=== PATIENT | female | born 1945 | race Caucasian/White ===

== ENCOUNTER → 2017-10-03 | Outpatient (CLI) | payer MEDICARE, MEDICAID ==
[~2017-10-03] MED LIST: ANAPROX DS550 MG PO; ASPIRIN 500 MG PO; ASPIRIN CHILDRE80 MG PO; ASPIRIN81 M1 PO; BACTRIM DS 8001 TA1 PO; CAMBIA50 MG PO; CIPROFLOXACIN250 MG; CITALOPRAM20 MG; CITALOPRAM20 MG PO; COLACE100 MG PO; DIFLUCAN200 MG PO; Diabeta,Micron2.5 MG; EC NAPROSYN,NA500 MG PO; FLEXERIL5 MG; FUROSEMIDE40 MG PO; GLIPIZIDE5 MG PO; HYDROCODONE W/1 TA1; KETOROLAC10 MG; KLOR-CON M2020 MEQ; LASIX40 MG; LISINOPRIL2.5 MG PO; LISINOPRIL20 MG PO; LOPRESSOR25 MG PO; MACROBID100 M1; MEDROL DOSEPAK4 MG PO; METFORMIN HCL1000 MG PO; METOPROLOL25 MG; MICONAZOLE; MIRALAX POWDER17 GM PO; MIRALAX17 GM PO; Meclizine25 MG PO; NEURONTIN300 MG PO; NEURONTIN400 MG PO; Nizoral 2%15 GM PO; OMEPRAZOLE DR20 MG; OXYCONTIN20 MG PO; PERCOCET 325 MG1 TA2 PO; PRAVASTATIN SOD40 MG PO; PRILOSEC20 MG PO; REMERON30 MG PO; ROBAXIN500 M1 PO; TRAMADOL HCL50 MG; TRAMADOL HCL50 MG PO; VICODIN 5/500 505 MG PO; VITAMIN D1000 IU; VITAMIN D22000 UNIT PO; Vicodin 5/500 505 MG PO; XANAX0.25 MG PO; XANAX0.5 MG PO; ZESTRIL10 MG PO; ZOLPIDEM10 MG; ZOLPIDEM5 MG PO
[2017-10-03 13:40] LABS: BASO % 0.5 % (0.0-1.0); EOS # 0.2 10*3/uL (0.0-0.4); EOS % 2.6 % (1.0-4.0); HEMATOCRIT 44.3 % (37.0-47.0); HEMOGLOBIN 13.3 g/dl (12.0-16.0); LYMPH # 1.5 10*3/uL (1.3-4.4); LYMPH % 17.3 % (27.0-41.0); MEAN CELL VOLUME 88.2 fl (81.0-99.0); MEAN CORPUSCULAR HGB 26.5 pg (27.0-31.0); MEAN PLATELET VOLUME 10.3 fl (9.6-12.3); MONO # 0.6 10*3/uL (0.1-1.0); NEUT # 6.3 10*3/uL (2.3-7.9); NEUT % 71.8 % (47.0-73.0); PLATELET COUNT AUTOMATED 189 10*3/uL (130-400); RED BLOOD COUNT 5.02 10*6/uL (4.10-5.10); RED CELL DISTRI WIDTH 15.3 % (0-14.5); WHITE BLOOD COUNT 8.8 10*3/uL (4.8-10.8)
[2017-10-03 14:09] LABS: ALBUMIN 3.8 gm/dl (3.1-4.5); CHLORIDE 105 mmol/L (98-107); POTASSIUM 4.6 mmol/L (3.5-5.1); SODIUM 141 mmol/L (136-145)
[2017-10-03 14:23] LABS: ALKALINE PHOSPHATASE 69 U/L (45-117); BUN 19 mg/dl (7-24); CHOLESTEROL 164 mg/dL (<200); CREATININE 0.88 mg/dL (0.55-1.02); HDL CHOLESTEROL 50 mg/dl (40-60); LDL CHOLESTEROL 82 mg/dL (9-159); SGOT/AST 9 IU/L (3-35); SGPT/ALT 12 U/L (12-78); THYROID STIM HORMONE (HS) 0.993 uIU/ml (0.358-4.75); TRIGLYCERIDES 159 mg/dl (<150); VLDL CHOLESTEROL 32 mg/dL (6-40)
== END | disposition home or self-care (01) ==
LOC: ORTHO 03:32 → LAB 03:32 → ORTHO 22:01
PROVIDERS: Internal Medicine
DX: M17.12 Unilateral primary osteoarthritis, left knee (principal); M54.6 Pain in thoracic spine; E11.42 Type 2 diabetes mellitus with diabetic polyneuropathy; E55.9 Vitamin D deficiency, unspecified; E78.2 Mixed hyperlipidemia

== ENCOUNTER → 2018-09-07 | Day surgery (SDC) | payer MEDICARE ==
[~2018-09-07] VITALS: Ht 157.4 cm; Wt 109.8 kg
[~2018-09-07] MED LIST changes: +LORAZEPAM0.5 MG PO; +SEPTDS PO
--- NOTE | ~2018-09-07 | PROC NOTE ---
[place], [place] PROCEDURE NOTE NAME: MERCEDES MATUTE UNIT #: [id number] ROOM: DOCTOR: AGNES WATTERS MD BIRTHDATE: [birth year] DOS: 09/07/2018 PREOPERATIVE DIAGNOSIS: Positive Cologuard. POSTOPERATIVE DIAGNOSIS: Mild diverticulosis, incomplete colonoscopy. PROCEDURE: Colonoscopy. ENDOSCOPIST: Agnes Watters MD COLLECTION SYSTEMS MODELER: RENA. ANESTHESIA: MAC. INDICATIONS: This is a 73-year-old lady with a history of a recent positive Cologuard test who is here for a screening colonoscopy. The procedure and its complications were explained to the patient in detail. Complications that were discussed included but were not limited to, bleeding, colon perforation, prolonged pain and missed lesions. She agreed to proceed. DESCRIPTION OF PROCEDURE: After identifying the patient, the patient was brought to the endoscopy suite and placed in the left lateral position. After a time-out procedure was called, IV sedation was administered by the anesthesia team. A digital rectal exam was performed and it was within normal limits. An adult colonoscope was now introduced into the anal canal and advancing sequentially into the rectum, sigmoid colon, descending colon, transverse colon and ascending colon right up to the point of the mid ascending colon. Beyond this point, the scope could not be advanced to better visualize the cecum. After multiple attempts, the procedure was aborted and the scope was pulled out. There was mild diverticulosis seen in the transverse colon, but no obvious lesions could be identified in the entirety of the colon. The scope was then removed and the patient was brought back to the recovery in stable fashion. Based on these findings, the patient will be recommended to have a barium enema as a followup to this incomplete colonoscopy in order to make sure that there are no lesions in the proximal part of the ascending colon that was not visualized on the colonoscopy. Agnes Watters MD CM:PROCNOTE:PROCEDURE NOTE [id number] AGNES WATTERS MD
[2018-09-07 06:30] VITALS: BP 197/76
[2018-09-07 08:25] VITALS: BP 207/82
[2018-09-07 08:40] VITALS: BP 200/76
[2018-09-07 08:55] VITALS: BP 161/98
== END | disposition home or self-care (01) ==
LOC: SDC 09-04 08:00
DX: K57.30 Diverticulosis of large intestine without perforation or abscess without bleeding (principal); E11.9 Type 2 diabetes mellitus without complications; F41.9 Anxiety disorder, unspecified; M19.90 Unspecified osteoarthritis, unspecified site; J44.9 Chronic obstructive pulmonary disease, unspecified; F32.9 Major depressive disorder, single episode, unspecified; E66.01 Morbid (severe) obesity due to excess calories; E78.5 Hyperlipidemia, unspecified; I25.10 Atherosclerotic heart disease of native coronary artery without angina pectoris; I11.0 Hypertensive heart disease with heart failure; I50.9 Heart failure, unspecified; Z79.84 Long term (current) use of oral hypoglycemic drugs; Z79.899 Other long term (current) drug therapy; Z90.710 Acquired absence of both cervix and uterus; Z95.818 Presence of other cardiac implants and grafts; Z98.890 Other specified postprocedural states; Z98.51 Tubal ligation status; Z87.891 Personal history of nicotine dependence; Z68.44 Body mass index [BMI] 60.0-69.9, adult; Z86.14 Personal history of Methicillin resistant Staphylococcus aureus infection; Z83.3 Family history of diabetes mellitus; Z82.49 Family history of ischemic heart disease and other diseases of the circulatory system

== ENCOUNTER 2018-10-25 21:03 | Emergency (ER) | payer MEDICARE ==
[~2018-10-25] VITALS: Ht 157.4 cm; Wt 108.9 kg
--- NOTE | ~2018-10-25 | EKG ---
[place], [place] ELECTROCARDIOGRAM REPORT NAME: MERCEDES MATUTE UNIT #: [id number] ROOM: DOCTOR: EPIPHANY DRAFT REPORT BIRTHDATE: [birth year] [facility] Test Date: 2018-10-25 Test Time: 21:40:09 Pat Name: MERCEDES MATUTE Department: ER Room: Gender: F Harness Rigger: Shoaib Garza : 1945 Requested By: FRANCES RUELAS Order Number: [id number] Reading MD: Nam Ramsey MD Measurements Intervals [place] Rate: 55 P: -12 VA: 240 QRS: -33 QRSD: 88 T: 85 QT: 463 QTc: 443 Interpretive Statements Sinus rhythm Prolonged VA interval Probable left atrial enlargement LVH with secondary repolarization abnormality Electronically Signed On 10-26-2018 6:23:59 PDT by Nam Ramsey MD CM:EKGRPT:ELECTROCARDIOGRAM REPORT [id number] FRANCES ADAMS DRAFT REPORT FRANCES RUELAS DO
[~2018-10-25 21:03] MED LIST changes: -LORAZEPAM0.5 MG PO; -SEPTDS PO
[2018-10-25] MEDS ORDERED: LORAZEPAM0.5 MG PO (21:06)
[2018-10-25 21:07] VITALS: BP 175/56
[2018-10-25 21:40] LABS: BASO # 0.1 10*3/uL (0.0-0.1); BASO % 0.5 % (0.0-1.0); EOS # 0.3 10*3/uL (0.0-0.4); HEMATOCRIT 39.3 % (37.0-47.0); HEMOGLOBIN 11.7 g/dl (12.0-16.0); LYMPH # 2.2 10*3/uL (1.3-4.4); MEAN CELL VOLUME 84.9 fl (81.0-99.0); MEAN CORPUSCULAR HGB 25.3 pg (27.0-31.0); MEAN CORPUSCULAR HGB CONC 29.8 g/dl (33.0-37.0); MEAN PLATELET VOLUME 10.4 fl (9.6-12.3); MONO % 9.1 % (3.0-9.0); NEUT # 7.8 10*3/uL (2.3-7.9); PLATELET COUNT AUTOMATED 244 10*3/uL (130-400); RED BLOOD COUNT 4.63 10*6/uL (4.10-5.10); RED CELL DISTRI WIDTH 15.4 % (0-14.5); WHITE BLOOD COUNT 11.4 10*3/uL (4.8-10.8)
[2018-10-25 21:57] LABS: ALBUMIN 3.6 gm/dl (3.1-4.5); ALKALINE PHOSPHATASE 94 U/L (45-117); BUN 23 mg/dl (7-24); CHLORIDE 99 mmol/L (98-107); CREATININE 1.14 mg/dL (0.55-1.02); POTASSIUM 4.1 mmol/L (3.5-5.1); SGOT/AST 16 IU/L (3-35); SGPT/ALT 13 U/L (12-78); SODIUM 133 mmol/L (136-145); TOTAL PROTEIN 7.5 gm/dL (6.4-8.2)
[2018-10-25 21:58] LABS: TROPONIN I < 0.015 ng/ml (<0.045)
[2018-10-25 21:59] LABS: ACT PARTIAL THROMBO TIME 23.7 SECONDS (20.0-32.1); INTERNATIONAL NORM RATIO 0.9 (2.0-3.5)
[2018-10-25 22:27] LABS: BILIRUBIN NEGATIVE (NEGATIVE); BLOOD NEGATIVE (NEGATIVE); CLARITY CLEAR (CLEAR); COLOR YELLOW (YELLOW); GLUCOSE NEGATIVE (NEGATIVE); KETONE NEGATIVE (NEGATIVE); LEUKO ESTERASE 2+ (NEGATIVE); NITRITE NEGATIVE (NEGATIVE); PH 6.5 (5.0-9.0); SPECIFIC GRAVITY <= 1.005 (1.005-1.030); UROBILINOGEN 0.2 E.U./dl (0.2-1.0)
[2018-10-25 22:43] LABS: EPITHELIAL CELLS 15-20
[2018-10-25 22:44] LABS: WBC 16-20 wbc/hpf (0-5)
[2018-10-25] MEDS ORDERED: SEPTDS PO (22:56)
== END 2018-10-25 23:31 | disposition home or self-care (01) ==
LOC: ED 21:03
PROVIDERS: Student in an Organized Health Care Education/Training Program
DX: N39.0 Urinary tract infection, site not specified (principal); R41.0 Disorientation, unspecified; I11.0 Hypertensive heart disease with heart failure; I50.33 Acute on chronic diastolic (congestive) heart failure; E78.5 Hyperlipidemia, unspecified; E66.01 Morbid (severe) obesity due to excess calories; E11.9 Type 2 diabetes mellitus without complications; Z68.42 Body mass index [BMI] 45.0-49.9, adult; Z79.899 Other long term (current) drug therapy; Z90.710 Acquired absence of both cervix and uterus; Z87.891 Personal history of nicotine dependence

== ENCOUNTER 2019-02-24 16:42 | Inpatient (IN) | payer MEDICARE ==
[~2019-02-24] VITALS: Ht 157.5 cm; Wt 100.7 kg
[~2019-02-24 16:42] MED LIST changes: +LORAZEPAM0.5 MG PO; +SEPTDS PO
[2019-02-24 17:02] VITALS: BP 186/98
--- NOTE | 2019-02-24 17:09 | NUR ---
PT STATES SHE HAS NO WOUNDS OR OPEN AREAS
[2019-02-24 18:00] LABS: BASO # 0.1 10*3/uL (0.0-0.1); BASO % 0.5 % (0.0-1.0); EOS # 0.2 10*3/uL (0.0-0.4); EOS % 1.8 % (1.0-4.0); HEMATOCRIT 39.6 % (37.0-47.0); HEMOGLOBIN 11.5 g/dl (12.0-16.0); LYMPH # 1.8 10*3/uL (1.3-4.4); LYMPH % 18.9 % (27.0-41.0); MEAN CORPUSCULAR HGB 24.1 pg (27.0-31.0); MEAN PLATELET VOLUME 10.5 fl (9.6-12.3); MONO # 0.8 10*3/uL (0.1-1.0); MONO % 8.6 % (3.0-9.0); NEUT # 6.7 10*3/uL (2.3-7.9); NEUT % 69.6 % (47.0-73.0); PLATELET COUNT AUTOMATED 197 10*3/uL (130-400); RED BLOOD COUNT 4.77 10*6/uL (4.10-5.10); RED CELL DISTRI WIDTH 16.8 % (0-14.5); WHITE BLOOD COUNT 9.6 10*3/uL (4.8-10.8)
[2019-02-24 18:14] LABS: ALBUMIN 3.4 gm/dl (3.1-4.5); ALKALINE PHOSPHATASE 79 U/L (45-117); BUN 23 mg/dl (7-24); CHLORIDE 109 mmol/L (98-107); CREATININE 0.88 mg/dL (0.55-1.02); POTASSIUM 4.4 mmol/L (3.5-5.1); SGOT/AST 16 IU/L (3-35); SGPT/ALT 15 U/L (12-78); SODIUM 141 mmol/L (136-145)
[2019-02-24 18:15] LABS: TROPONIN I < 0.015 ng/ml (<0.045)
[2019-02-24 19:50] VITALS: BP 182/88
--- NOTE | 2019-02-24 20:30 | NUR ---
1/2 DOSE HYDRAZALINE GIVEN TO THE PATIENT PER PERSONAL FITNESS TRAINER ORDER. WILL GIVE THE OTHER DOSE IF NEEDED.
--- NOTE | 2019-02-24 21:00 | NUR ---
OTHER HALF OF HYDRAZALINE GIVEN TO THE PATIENT.
[2019-02-24 21:40] VITALS: BP 202/74
--- NOTE | 2019-02-24 21:40 | NUR ---
A 73, admitted to , under the services of CHARAN Pineda DO with a diagnosis of HYPERTENSIVE URGENCY, SYNCOPE. Chief complaint is FALL. Patient arrived via ambulance from ER. Monitor applied. Initial assessment completed. Vital signs taken and recorded. CHARAN PINEDA DO notified of admission to the unit. Orders received. See assessment for past medical history, medications and allergies. Patient and/or family oriented to unit. [address] visitation policy reviewed. Clothing/patient valuable form completed. ARACELI KING
--- NOTE | 2019-02-24 22:34 | NUR ---
INFORMED MED REC UP TO DATE AND OF MANUAL BP 202/74. ORDERS TO BE PUT IN BY HIM.
--- NOTE | 2019-02-24 22:35 | NUR ---
PATIENT DECLINING FLU AND PNEMONIA SHOT. PATIENT STATES SHE WAS ALREADY VACCINATED THIS SEASON.
--- NOTE | 2019-02-24 23:00 | NUR ---
SPOKE TO REGARDING BP MEDICATION. NEW ORDERS RECEIVED.
--- NOTE | 2019-02-24 23:16 | NUR ---
ONE TIME APRESOLINE GIVEN ORDERED. WILL CHECK EFFECTIVENESS.
--- NOTE | 2019-02-24 23:30 | NUR ---
PTS BP NOW 160/72 AFTER HYDRALAZINE. WILL CONTINUE TO MONITOR.
[2019-02-25] VITALS: BP 156/63; BP 170/67
--- NOTE | 2019-02-25 00:32 | NUR ---
PT COMPLAINS OF LOWER BACK AND LEFT HIP PAIN RATED 10/10. MEDICATED WITH PRN NORCO. WILL CHECK EFFECTIVENESS. CALL LIGHT WITHIN REACH.
--- NOTE | 2019-02-25 01:11 | NUR ---
PATIENT NAUSEOUS AND THROWING UP. MEDICATED WITH PRN ZOFRAN AT THIS TIME ORDERED. WILL CHECK EFFECTIVENESS. CALL LIGHT WITHIN REACH.
--- NOTE | 2019-02-25 01:30 | NUR ---
PT STATES PAIN MED WAS EFFECTIVE RATING PAIN A 5/10 NOW. WILL CONTINUE TO MONITOR. CALL LIGHT IN REACH.
--- NOTE | 2019-02-25 01:35 | NUR ---
PATIENT STATES MEDICATION WAS EFFECITVE. SHE IS NO LONGER FEELING NAUSEOUS. WILL CONTINUE TO MONITOR.
--- NOTE | 2019-02-25 02:42 | NUR ---
24 HR chart check completed.
--- NOTE | 2019-02-25 05:24 | NUR ---
NOTIFIED OF CRITICAL TROPONIN OF 0.168. NEW ORDERS TO BE PUT IN BY HIM.
[2019-02-25 05:28] LABS: BUN 23 mg/dl (7-24); CHLORIDE 107 mmol/L (98-107); CHOLESTEROL 234 mg/dL (<200); HDL CHOLESTEROL 46 mg/dl (40-60); LDL CHOLESTEROL 158 mg/dL (9-159); PHOSPHOROUS 3.4 mg/dL (2.5-4.9); POTASSIUM 4.6 mmol/L (3.5-5.1); SODIUM 139 mmol/L (136-145); TRIGLYCERIDES 149 mg/dl (<150); VLDL CHOLESTEROL 30 mg/dL (6-40)
[2019-02-25 05:34] LABS: THYROID STIM HORMONE (HS) 0.576 uIU/ml (0.358-4.75)
--- NOTE | 2019-02-25 05:35 | NUR ---
ANSWERING SERVICE NOTIFIED OF NEW CONSULT.
[2019-02-25 06:05] LABS: BASO % 0.3 % (0.0-1.0); EOS # 0.1 10*3/uL (0.0-0.4); EOS % 0.8 % (1.0-4.0); HEMATOCRIT 40.6 % (37.0-47.0); HEMOGLOBIN 11.8 g/dl (12.0-16.0); LYMPH # 1.7 10*3/uL (1.3-4.4); LYMPH % 14.1 % (27.0-41.0); MEAN CORPUSCULAR HGB 23.8 pg (27.0-31.0); MEAN CORPUSCULAR HGB CONC 29.1 g/dl (33.0-37.0); MEAN PLATELET VOLUME 11.3 fl (9.6-12.3); MONO # 0.8 10*3/uL (0.1-1.0); MONO % 7.1 % (3.0-9.0); NEUT # 9.1 10*3/uL (2.3-7.9); NEUT % 76.9 % (47.0-73.0); PLATELET COUNT AUTOMATED 233 10*3/uL (130-400); RED BLOOD COUNT 4.95 10*6/uL (4.10-5.10); WHITE BLOOD COUNT 11.9 10*3/uL (4.8-10.8)
[2019-02-25 08:00] VITALS: BP 135/78
--- NOTE | 2019-02-25 08:15 | NUR ---
24 HR chart check completed.
[2019-02-25 08:25] LABS: VITAMIN D, 25-HYDROXY 30.8 ng/mL (30-100)
--- NOTE | 2019-02-25 09:52 | NUR ---
SPOKE W ZACHARYNEAR ABOUT CRITICAL TROPONIN 1.510
--- NOTE | 2019-02-25 09:58 | NUR ---
SITA BROUSSARD ABOUT TROPONIN 1.510 SAID HE WILL CALL DR CONRAD
[2019-02-25 12:00] VITALS: BP 178/60
--- NOTE | 2019-02-25 12:17 | NUR ---
DR MURRAY HERE TO SEE PT AND WAS NOTIFIED OF ALL AND LATEST TROPONINS.
--- NOTE | 2019-02-25 14:43 | NUR ---
SPOKE Joselo HERRERA ABOUT TROPONIN 2.76
--- NOTE | 2019-02-25 14:58 | NUR ---
SPOKEW BOBO ABOUT PT TROPONIN 2.76
[2019-02-25 16:00] VITALS: BP 148/72; BP 167/65
--- NOTE | 2019-02-25 16:29 | NUR ---
F/U BS 96 GAVE PT 2 OJS WHEN IT WAS 65
--- NOTE | 2019-02-25 17:26 | NUR ---
SPOKE Joselo BROUSSARD AND SHANTI ABOUT PT TROPONION 3.63 SAID SHE IS FOR HEART CATH TOMORROW
--- NOTE | 2019-02-25 18:39 | NUR ---
PT F/U BP 148/72 SINCE GIVING LABETALOL 167/70S
[2019-02-25 20:00] VITALS: BP 157/64
--- NOTE | 2019-02-25 20:25 | NUR ---
INFORMED THAT TROP 2.44. STATED OK, AND TO PLACE DISCHARGE ORDER FOR TRANSFER TO [facility].
--- NOTE | 2019-02-25 20:40 | NUR ---
PATIENT ASSESSMENT COMPLETE AT THIS TIME WITHOUT INCIDENT, PATIENT BATHING AT THIS TIME WITH ASSISTANCE. MONITOR INTACT. IV HEPARIN INFUSING WITHOUT INCIDENT AT THIS TIME. NEXT APTT IS DUE AT 2230. NC OXYGEN INTACT AT 3LPM. CALL LIGHT WITHIN REACH, WILL CONTINUE TO MONITOR.
--- NOTE | 2019-02-25 23:55 | NUR ---
NOTIFIED OF CRITICAL TROPONIN 1.710, DOWN FROM 2.440.
--- NOTE | 2019-02-26 00:35 | NUR ---
APTT 66.9, NO CHANGE TO HEPARIN DRIP AT THIS TIME. NEXT APTT ORDERED FOR 0530
--- NOTE | 2019-02-26 06:15 | NUR ---
[facility] CALLED, REPORT GIVEN TO TONI AT THIS TIME, ALL QUESTIONS ANSWERED TO HER SATISFACTION. OKAY TO LEAVE HEPARIN DRIP RUNNING AT 10UNITS/9.35ML/HR.
--- NOTE | 2019-02-26 07:30 | NUR ---
BEDSIDE REPORT GIVEN TO SARAN FROM [facility] FOR TRANSPORT AT THIS TIME. PATIENT OFF FLOOR WITH [facility] AT THIS TIME.
== END 2019-02-26 07:30 | disposition other institution (70) | DRG 281 ==
LOC: ED 16:42 → EDHOLD 19:57 → 4E 20:24
PROVIDERS: Internal Medicine; Nurse Practitioner Family; ADMIT Internal Medicine
DX: I21.4 Non-ST elevation (NSTEMI) myocardial infarction (principal); I16.1 Hypertensive emergency; I25.810 Atherosclerosis of coronary artery bypass graft(s) without angina pectoris; J96.11 Chronic respiratory failure with hypoxia; Z68.42 Body mass index [BMI] 45.0-49.9, adult; R55 Syncope and collapse; D50.9 Iron deficiency anemia, unspecified; R00.1 Bradycardia, unspecified; R42 Dizziness and giddiness; E78.5 Hyperlipidemia, unspecified; F32.9 Major depressive disorder, single episode, unspecified; E66.01 Morbid (severe) obesity due to excess calories; E11.65 Type 2 diabetes mellitus with hyperglycemia; M81.0 Age-related osteoporosis without current pathological fracture; E87.8 Other disorders of electrolyte and fluid balance, not elsewhere classified; D72.829 Elevated white blood cell count, unspecified; Z95.1 Presence of aortocoronary bypass graft; Z95.5 Presence of coronary angioplasty implant and graft; Z98.51 Tubal ligation status; Z90.710 Acquired absence of both cervix and uterus; Z99.81 Dependence on supplemental oxygen; Z82.0 Family history of epilepsy and other diseases of the nervous system; Z82.3 Family history of stroke; Z82.49 Family history of ischemic heart disease and other diseases of the circulatory system; Z83.3 Family history of diabetes mellitus; Z79.899 Other long term (current) drug therapy

== ENCOUNTER → 2019-12-11 | Outpatient (CLI) | payer MEDICARE | END | disposition home or self-care (01) | LOC: ORTHO 00:27 | PROVIDERS: ATTEND Psychiatry & Neurology Psychiatry | DX: M17.12 Unilateral primary osteoarthritis, left knee (principal); M25.762 Osteophyte, left knee ==

== ENCOUNTER → 2020-02-04 | Outpatient (CLI) | payer MEDICARE | END | disposition home or self-care (01) | LOC: RAD 16:44 | PROVIDERS: ATTEND Chiropractor | DX: S32.019A Unspecified fracture of first lumbar vertebra, initial encounter for closed fracture (principal); M81.0 Age-related osteoporosis without current pathological fracture; G95.20 Unspecified cord compression; J84.10 Pulmonary fibrosis, unspecified; X58.XXXA Exposure to other specified factors, initial encounter; Y93.89 Activity, other specified; Y92.89 Other specified places as the place of occurrence of the external cause; Y99.8 Other external cause status ==

== ENCOUNTER 2020-09-13 12:52 | Emergency (ER) | payer OTHER ==
[~2020-09-13] VITALS: Wt 95.3 kg
[2020-09-13 13:19] LABS: HEMATOCRIT 40.7 % (37.0-47.0); MEAN CELL VOLUME 83.1 fl (81.0-99.0); MEAN CORPUSCULAR HGB 25.5 pg (27.0-31.0); MEAN CORPUSCULAR HGB CONC 30.7 g/dl (33.0-37.0); MEAN PLATELET VOLUME 10.4 fl (9.6-12.3); PLATELET COUNT AUTOMATED 271 10*3/uL (130-400); RED CELL DISTRI WIDTH 15.8 % (0-14.5); WHITE BLOOD COUNT 27.4 10*3/uL (4.8-10.8)
[2020-09-13 13:35] LABS: TOTAL CELLS COUNTED 100 #CELLS
[2020-09-13 13:36] LABS: BURR CELLS FEW; OVALOCYTES FEW; PLATELET SUFFICIENCY NORMAL (NORMAL); POLYCHROMASIA SLIGHT
[2020-09-13 13:37] LABS: ALBUMIN 3.2 gm/dl (3.1-4.5); ALKALINE PHOSPHATASE 103 U/L (45-117); BUN 49 mg/dl (7-24); CHLORIDE 100 mmol/L (98-107); CREATININE 1.85 mg/dL (0.55-1.02); LIPASE 34 U/L (73-393); POTASSIUM 4.2 mmol/L (3.5-5.1); SGOT/AST 10 IU/L (3-35); SGPT/ALT 13 U/L (12-78); SODIUM 136 mmol/L (136-145); TOTAL PROTEIN 7.8 gm/dL (6.4-8.2)
[2020-09-13 13:40] LABS: TROPONIN I < 0.015 ng/ml (<0.045)
[2020-09-13 14:40] LABS: BILIRUBIN Negative (Negative); BLOOD Negative (Negative); CLARITY Clear (Clear); COLOR Yellow (Yellow); GLUCOSE Trace (Negative); KETONE Trace (Negative); LEUKO ESTERASE Negative (Negative); NITRITE Negative (Negative); UROBILINOGEN 0.2 E.U./dl (0.0-1.0)
[2020-09-13 14:50] LABS: BACTERIA TRACE; RBC 0-2 rbc/hpf (0-2); WBC 0-2 wbc/hpf (0-5)
[2020-09-13 16:34] VITALS: BP 129/46
== END 2020-09-13 17:12 | disposition short-term general hospital (02) ==
LOC: ED 12:52
PROVIDERS: Emergency Medicine
DX: K65.0 Generalized (acute) peritonitis (principal); R65.20 Severe sepsis without septic shock; I25.10 Atherosclerotic heart disease of native coronary artery without angina pectoris; F32.9 Major depressive disorder, single episode, unspecified; E78.5 Hyperlipidemia, unspecified; E11.9 Type 2 diabetes mellitus without complications; Z79.899 Other long term (current) drug therapy; Z90.711 Acquired absence of uterus with remaining cervical stump; Z98.51 Tubal ligation status

== ENCOUNTER 2021-03-29 17:31 | Emergency (ER) | payer OTHER ==
[~2021-03-29] VITALS: Ht 160 cm; Wt 88.5 kg
[2021-03-29 17:32] VITALS: BP 174/105
[2021-03-29 18:02] LABS: BASO # 0.1 10*3/uL (0.0-0.1); BASO % 0.5 % (0.0-1.0); EOS # 0.2 10*3/uL (0.0-0.4); EOS % 1.5 % (1.0-4.0); HEMATOCRIT 40.2 % (37.0-47.0); LYMPH # 2.1 10*3/uL (1.3-4.4); LYMPH % 21.1 % (27.0-41.0); MEAN CELL VOLUME 88.9 fl (81.0-99.0); MEAN CORPUSCULAR HGB CONC 30.3 g/dl (33.0-37.0); MEAN PLATELET VOLUME 9.2 fl (9.6-12.3); MONO # 0.7 10*3/uL (0.1-1.0); NEUT # 6.7 10*3/uL (2.3-7.9); NEUT % 69.3 % (47.0-73.0); PLATELET COUNT AUTOMATED 235 10*3/uL (130-400); RED BLOOD COUNT 4.52 10*6/uL (4.10-5.10); RED CELL DISTRI WIDTH 14.2 % (0-14.5); WHITE BLOOD COUNT 9.7 10*3/uL (4.8-10.8)
[2021-03-29 18:18] LABS: ALBUMIN 3.1 gm/dl (3.1-4.5); CREATININE 1.31 mg/dL (0.55-1.02); POTASSIUM 5.3 mmol/L (3.5-5.1); TOTAL PROTEIN 7.5 gm/dL (6.4-8.2)
== END 2021-03-30 02:00 | disposition home or self-care (01) ==
LOC: ED 17:31
PROVIDERS: Emergency Medicine
DX: H10.9 Unspecified conjunctivitis (principal); I25.10 Atherosclerotic heart disease of native coronary artery without angina pectoris; E78.5 Hyperlipidemia, unspecified; E11.9 Type 2 diabetes mellitus without complications; Z79.899 Other long term (current) drug therapy

== ENCOUNTER 2021-06-16 03:51 | Inpatient (IN) | payer OTHER ==
[~2021-06-16] VITALS: Ht 157.4 cm; Wt 85.1 kg
[2021-06-16 03:53] VITALS: BP 219/88
[2021-06-16 04:37] LABS: BASO % 0.4 % (0.0-1.0); EOS # 0.2 10*3/uL (0.0-0.4); EOS % 2.6 % (1.0-4.0); LYMPH # 3.1 10*3/uL (1.3-4.4); LYMPH % 33.8 % (27.0-41.0); MEAN CELL VOLUME 87.7 fl (81.0-99.0); MEAN CORPUSCULAR HGB 27.9 pg (27.0-31.0); MEAN CORPUSCULAR HGB CONC 31.8 g/dl (33.0-37.0); MEAN PLATELET VOLUME 9.9 fl (9.6-12.3); MONO # 0.7 10*3/uL (0.1-1.0); MONO % 7.7 % (3.0-9.0); NEUT % 54.8 % (47.0-73.0); PLATELET COUNT AUTOMATED 269 10*3/uL (130-400); RED BLOOD COUNT 4.56 10*6/uL (4.10-5.10); RED CELL DISTRI WIDTH 13.7 % (0-14.5); WHITE BLOOD COUNT 9.1 10*3/uL (4.8-10.8)
[2021-06-16 04:54] LABS: CREATININE 1.46 mg/dL (0.55-1.02); POTASSIUM 4.7 mmol/L (3.5-5.1); TOTAL PROTEIN 7.3 gm/dL (6.4-8.2)
[2021-06-16 07:21] LABS: BILIRUBIN Negative (Negative); BLOOD Negative (Negative); CLARITY Cloudy (Clear); COLOR Yellow (Yellow); GLUCOSE Negative (Negative); KETONE Negative (Negative); LEUKO ESTERASE 2+ (Negative); NITRITE Negative (Negative); PH 6.5 (4.5-8.0); UROBILINOGEN 0.2 E.U./dl (0.0-1.0)
[2021-06-16 07:29] VITALS: BP 155/42
[2021-06-16 08:05] LABS: BACTERIA 4+; WBC 21-30 wbc/hpf (0-5)
[2021-06-16 08:40] VITALS: BP 156/72
[2021-06-16 12:00] VITALS: BP 188/54
[2021-06-16] MEDS ORDERED: HYDROCODONE-AC1 EAC2 PO (14:09)
[2021-06-16] MEDS ORDERED: XANAX0.25 MG PO (14:55)
[2021-06-16 15:47] VITALS: BP 162/70
[2021-06-16 20:00] VITALS: BP 175/63
[2021-06-17] VITALS (7 sets, daily range): BP systolic 153–189; BP diastolic 48–67
[2021-06-17 05:34] LABS: CREATININE 1.17 mg/dL (0.55-1.02); TOTAL PROTEIN 7.1 gm/dL (6.4-8.2)
[2021-06-17 06:28] LABS: BASO # 0.1 10*3/uL (0.0-0.1); BASO % 0.7 % (0.0-1.0); EOS # 0.4 10*3/uL (0.0-0.4); EOS % 4.7 % (1.0-4.0); HEMATOCRIT 40.5 % (37.0-47.0); LYMPH % 35.5 % (27.0-41.0); MEAN CELL VOLUME 89.8 fl (81.0-99.0); MEAN CORPUSCULAR HGB 27.3 pg (27.0-31.0); MEAN CORPUSCULAR HGB CONC 30.4 g/dl (33.0-37.0); MEAN PLATELET VOLUME 10.4 fl (9.6-12.3); MONO # 0.7 10*3/uL (0.1-1.0); MONO % 8.9 % (3.0-9.0); NEUT # 4.2 10*3/uL (2.3-7.9); NEUT % 49.8 % (47.0-73.0); PLATELET COUNT AUTOMATED 274 10*3/uL (130-400); RED BLOOD COUNT 4.51 10*6/uL (4.10-5.10); RED CELL DISTRI WIDTH 13.6 % (0-14.5); WHITE BLOOD COUNT 8.3 10*3/uL (4.8-10.8)
[2021-06-17] MEDS ORDERED: IMDUR SA30 MG PO (22:48)
[2021-06-18] VITALS: BP 183/65
[2021-06-18 05:49] LABS: CREATININE 1.2 mg/dL (0.55-1.02)
[2021-06-18 06:02] LABS: BASO # 0.1 10*3/uL (0.0-0.1); BASO % 0.7 % (0.0-1.0); EOS # 0.4 10*3/uL (0.0-0.4); EOS % 4.1 % (1.0-4.0); HEMATOCRIT 39.7 % (37.0-47.0); LYMPH # 3.1 10*3/uL (1.3-4.4); LYMPH % 35.7 % (27.0-41.0); MEAN CELL VOLUME 90.2 fl (81.0-99.0); MEAN PLATELET VOLUME 10.5 fl (9.6-12.3); MONO # 0.9 10*3/uL (0.1-1.0); MONO % 10.3 % (3.0-9.0); NEUT # 4.2 10*3/uL (2.3-7.9); NEUT % 48.4 % (47.0-73.0); PLATELET COUNT AUTOMATED 245 10*3/uL (130-400); RED CELL DISTRI WIDTH 13.7 % (0-14.5); WHITE BLOOD COUNT 8.8 10*3/uL (4.8-10.8)
[2021-06-18 12:00] VITALS: BP 176/50
[2021-06-18 16:00] VITALS: BP 154/53
[2021-06-18 20:00] VITALS: BP 115/59
[2021-06-19] VITALS: BP 138/40
[2021-06-19 08:00] VITALS: BP 147/65
[2021-06-19 12:00] VITALS: BP 128/61
[2021-06-19 16:00] VITALS: BP 134/60
[2021-06-19 20:00] VITALS: BP 151/39
[2021-06-19 20:46] VITALS: BP 138/58
[2021-06-20] VITALS: BP 180/57
[2021-06-20 08:00] VITALS: BP 183/73
[2021-06-20 12:00] VITALS: BP 182/65
[2021-06-20 16:00] VITALS: BP 168/56
[2021-06-20 20:00] VITALS: BP 153/49
[2021-06-21] VITALS: BP 169/60
[2021-06-21 06:18] LABS: BASO # 0.1 10*3/uL (0.0-0.1); BASO % 0.8 % (0.0-1.0); EOS # 0.4 10*3/uL (0.0-0.4); EOS % 4.7 % (1.0-4.0); HEMATOCRIT 38.2 % (37.0-47.0); LYMPH # 3.3 10*3/uL (1.3-4.4); LYMPH % 39.3 % (27.0-41.0); MEAN CELL VOLUME 90.3 fl (81.0-99.0); MEAN CORPUSCULAR HGB 27.7 pg (27.0-31.0); MEAN CORPUSCULAR HGB CONC 30.6 g/dl (33.0-37.0); MEAN PLATELET VOLUME 10.1 fl (9.6-12.3); MONO # 0.9 10*3/uL (0.1-1.0); MONO % 10.5 % (3.0-9.0); NEUT # 3.6 10*3/uL (2.3-7.9); PLATELET COUNT AUTOMATED 209 10*3/uL (130-400); RED BLOOD COUNT 4.23 10*6/uL (4.10-5.10); RED CELL DISTRI WIDTH 13.9 % (0-14.5); WHITE BLOOD COUNT 8.3 10*3/uL (4.8-10.8)
[2021-06-21 06:52] LABS: CREATININE 1.27 mg/dL (0.55-1.02); POTASSIUM 4.1 mmol/L (3.5-5.1)
[2021-06-21 08:00] VITALS: BP 178/59
[2021-06-21 12:00] VITALS: BP 146/79
[2021-06-21 16:00] VITALS: BP 131/56
[2021-06-21 20:00] VITALS: BP 157/42
[2021-06-22] VITALS: BP 153/49
[2021-06-22 08:00] VITALS: BP 171/85
[2021-06-22] MEDS ORDERED: AMLODIPINE BESYL5 MG PO (11:03)
[2021-06-22] MEDS ORDERED: AMOX-CLAV 875-1 EACH PO (11:03)
[2021-06-22] MEDS ORDERED: DELZICOL400 M2 PO (11:03)
[2021-06-22 12:00] VITALS: BP 141/47
[2021-06-22] MEDS ORDERED: HYDROCODONE-AC1 EAC2 PO (13:03)
== END 2021-06-22 13:00 | disposition home or self-care (01) | DRG 393 ==
LOC: ED 03:51 → 4E 06:15 → EDHOLD 06:15 → 4E 07:12
PROVIDERS: Internal Medicine; ADMIT Internal Medicine; ATTEND Internal Medicine
DX: K55.8 Other vascular disorders of intestine (principal); N17.0 Acute kidney failure with tubular necrosis; J96.10 Chronic respiratory failure, unspecified whether with hypoxia or hypercapnia; N30.00 Acute cystitis without hematuria; E44.0 Moderate protein-calorie malnutrition; I16.1 Hypertensive emergency; N18.30 Chronic kidney disease, stage 3 unspecified; E11.22 Type 2 diabetes mellitus with diabetic chronic kidney disease; E11.65 Type 2 diabetes mellitus with hyperglycemia; Z68.34 Body mass index [BMI] 34.0-34.9, adult; E83.41 Hypermagnesemia; E87.8 Other disorders of electrolyte and fluid balance, not elsewhere classified; I13.10 Hypertensive heart and chronic kidney disease without heart failure, with stage 1 through stage 4 chronic kidney disease, or unspecified chronic kidney disease; E78.5 Hyperlipidemia, unspecified; E66.09 Other obesity due to excess calories; I25.10 Atherosclerotic heart disease of native coronary artery without angina pectoris; M54.9 Dorsalgia, unspecified; B96.20 Unspecified Escherichia coli [E. coli] as the cause of diseases classified elsewhere; Z82.49 Family history of ischemic heart disease and other diseases of the circulatory system; Z82.0 Family history of epilepsy and other diseases of the nervous system; Z79.899 Other long term (current) drug therapy; Z95.5 Presence of coronary angioplasty implant and graft; Z90.710 Acquired absence of both cervix and uterus; Z95.1 Presence of aortocoronary bypass graft; Z98.51 Tubal ligation status

== ENCOUNTER 2022-01-27 14:18 | Inpatient (IN) | payer OTHER ==
[~2022-01-27] VITALS: Ht 162.6 cm; Wt 83.5 kg
[~2022-01-27 14:18] MED LIST changes: +AMLODIPINE BESYL5 MG PO; +AMOX-CLAV 875-1 EACH PO; +ATIVAN0.5 MG PO; +AUGMENTIN 500500 M1 PO; +DELZICOL400 M2 PO; +HYDROCODONE-AC1 EAC2 PO; +HYDROCODONE-AC1 EACH PO; +IBU800 M1 PO; +IMDUR SA30 MG PO; +METFORMIN HYDR500 MG PO; +METHOCARBAMOL500 M1 PO; +ZESTRIL20 MG PO
[2022-01-27 15:07] LABS: BILIRUBIN Negative (Negative); BLOOD Negative (Negative); CLARITY Clear (Clear); COLOR Yellow (Yellow); GLUCOSE Negative (Negative); KETONE Negative (Negative); LEUKO ESTERASE Negative (Negative); NITRITE Negative (Negative); SPECIFIC GRAVITY 1.015 (1.001-1.030); UROBILINOGEN 0.2 E.U./dl (0.0-1.0)
[2022-01-27 15:16] VITALS: BP 169/68
[2022-01-27 15:21] LABS: BASO % 0.8 % (0.0-1.0); EOS # 0.1 10*3/uL (0.0-0.4); HEMATOCRIT 44.4 % (37.0-47.0); LYMPH % 20.2 % (27.0-41.0); MEAN CELL VOLUME 90.1 fl (81.0-99.0); MEAN CORPUSCULAR HGB 27.8 pg (27.0-31.0); MEAN CORPUSCULAR HGB CONC 30.9 g/dl (33.0-37.0); MEAN PLATELET VOLUME 10.8 fl (9.6-12.3); MONO # 0.9 10*3/uL (0.1-1.0); NEUT # 2.8 10*3/uL (2.3-7.9); NEUT % 58.2 % (47.0-73.0); PLATELET COUNT AUTOMATED 185 10*3/uL (130-400); RED BLOOD COUNT 4.93 10*6/uL (4.10-5.10); RED CELL DISTRI WIDTH 14.4 % (0-14.5); WHITE BLOOD COUNT 4.9 10*3/uL (4.8-10.8)
[2022-01-27 15:31] LABS: HYALINE CAST 0-2; RBC 0-2 rbc/hpf (0-2)
[2022-01-27 15:32] LABS: ACT PARTIAL THROMBO TIME 26.5 SECONDS (20.0-32.1); INTERNATIONAL NORM RATIO 0.9 (2.0-3.5)
[2022-01-27 15:44] LABS: CREATININE 1.47 mg/dL (0.55-1.02); POTASSIUM 4.3 mmol/L (3.5-5.1); TOTAL PROTEIN 7.8 gm/dL (6.4-8.2)
[2022-01-27 18:03] VITALS: BP 169/68
[2022-01-27 20:07] VITALS: BP 169/64
[2022-01-27 22:00] VITALS: BP 164/67
[2022-01-28 06:33] LABS: BASO % 0.5 % (0.0-1.0); EOS % 0.2 % (1.0-4.0); HEMATOCRIT 42.3 % (37.0-47.0); LYMPH # 1.2 10*3/uL (1.3-4.4); LYMPH % 28.4 % (27.0-41.0); MEAN CELL VOLUME 87.6 fl (81.0-99.0); MEAN CORPUSCULAR HGB 27.7 pg (27.0-31.0); MEAN CORPUSCULAR HGB CONC 31.7 g/dl (33.0-37.0); MONO # 0.8 10*3/uL (0.1-1.0); MONO % 18.7 % (3.0-9.0); NEUT # 2.2 10*3/uL (2.3-7.9); NEUT % 51.5 % (47.0-73.0); PLATELET COUNT AUTOMATED 163 10*3/uL (130-400); RED BLOOD COUNT 4.83 10*6/uL (4.10-5.10); RED CELL DISTRI WIDTH 13.9 % (0-14.5); WHITE BLOOD COUNT 4.2 10*3/uL (4.8-10.8)
[2022-01-28 06:44] LABS: CREATININE 1.12 mg/dL (0.55-1.02); POTASSIUM 4.1 mmol/L (3.5-5.1); TOTAL PROTEIN 6.8 gm/dL (6.4-8.2)
[2022-01-28 08:00] VITALS: BP 182/84
[2022-01-28 12:00] VITALS: BP 146/51; BP 153/63
[2022-01-28 16:00] VITALS: BP 135/52
[2022-01-28 20:00] VITALS: BP 158/51
[2022-01-29] VITALS: BP 137/51
[2022-01-29 06:28] LABS: HEMATOCRIT 38.5 % (37.0-47.0); MEAN CELL VOLUME 86.5 fl (81.0-99.0); MEAN CORPUSCULAR HGB 27.6 pg (27.0-31.0); MEAN CORPUSCULAR HGB CONC 31.9 g/dl (33.0-37.0); MEAN PLATELET VOLUME 10.9 fl (9.6-12.3); PLATELET COUNT AUTOMATED 161 10*3/uL (130-400); RED BLOOD COUNT 4.45 10*6/uL (4.10-5.10); RED CELL DISTRI WIDTH 13.5 % (0-14.5); WHITE BLOOD COUNT 2.8 10*3/uL (4.8-10.8)
[2022-01-29 06:47] LABS: CREATININE 1.26 mg/dL (0.55-1.02); POTASSIUM 4.1 mmol/L (3.5-5.1)
[2022-01-29 08:00] VITALS: BP 159/52
[2022-01-29 12:00] VITALS: BP 157/61
[2022-01-29 16:00] VITALS: BP 138/61
[2022-01-29 20:04] VITALS: BP 115/80
[2022-01-30 00:09] VITALS: BP 136/64
[2022-01-30 04:17] VITALS: BP 143/58
[2022-01-30 06:02] LABS: CREATININE 1.25 mg/dL (0.55-1.02); POTASSIUM 4.3 mmol/L (3.5-5.1)
[2022-01-30 06:16] LABS: BASO % 0.2 % (0.0-1.0); HEMATOCRIT 38.6 % (37.0-47.0); LYMPH # 1.4 10*3/uL (1.3-4.4); LYMPH % 22.6 % (27.0-41.0); MEAN CELL VOLUME 87.3 fl (81.0-99.0); MEAN CORPUSCULAR HGB 27.6 pg (27.0-31.0); MEAN CORPUSCULAR HGB CONC 31.6 g/dl (33.0-37.0); MEAN PLATELET VOLUME 11.1 fl (9.6-12.3); MONO # 0.7 10*3/uL (0.1-1.0); NEUT # 4.1 10*3/uL (2.3-7.9); NEUT % 65.9 % (47.0-73.0); PLATELET COUNT AUTOMATED 166 10*3/uL (130-400); RED BLOOD COUNT 4.42 10*6/uL (4.10-5.10); RED CELL DISTRI WIDTH 13.6 % (0-14.5); WHITE BLOOD COUNT 6.2 10*3/uL (4.8-10.8)
[2022-01-30 08:00] VITALS: BP 137/89
[2022-01-30 12:00] VITALS: BP 150/70
[2022-01-30 16:00] VITALS: BP 110/48
[2022-01-30 20:00] VITALS: BP 135/57
[2022-01-31] VITALS: BP 144/52
[2022-01-31 04:12] VITALS: BP 135/66
[2022-01-31 07:38] LABS: CREATININE 1.28 mg/dL (0.55-1.02); POTASSIUM 4.2 mmol/L (3.5-5.1)
[2022-01-31 08:00] VITALS: BP 143/55
[2022-01-31 12:00] VITALS: BP 143/59
[2022-01-31 16:00] VITALS: BP 143/53
[2022-01-31 20:00] VITALS: BP 139/59
[2022-02-01] VITALS: BP 137/69
[2022-02-01 07:30] LABS: CREATININE 1.1 mg/dL (0.55-1.02); POTASSIUM 4.3 mmol/L (3.5-5.1)
[2022-02-01 08:00] VITALS: BP 159/62
[2022-02-01 12:00] VITALS: BP 127/64
[2022-02-01 16:00] VITALS: BP 114/65
[2022-02-01 20:00] VITALS: BP 117/49
[2022-02-02] VITALS: BP 154/65
[2022-02-02 08:00] VITALS: BP 130/57
[2022-02-02 12:00] VITALS: BP 119/57
[2022-02-02 16:00] VITALS: BP 108/41
[2022-02-02 20:00] VITALS: BP 111/53
[2022-02-03] VITALS: BP 127/40
[2022-02-03 08:00] VITALS: BP 135/53
[2022-02-03 12:00] VITALS: BP 118/59
[2022-02-03 16:00] VITALS: BP 115/50
[2022-02-03 20:00] VITALS: BP 118/47
[2022-02-04] VITALS: BP 142/49
[2022-02-04 06:49] LABS: HEMATOCRIT 37.9 % (37.0-47.0); MEAN CELL VOLUME 88.6 fl (81.0-99.0); MEAN CORPUSCULAR HGB 27.8 pg (27.0-31.0); MEAN CORPUSCULAR HGB CONC 31.4 g/dl (33.0-37.0); MEAN PLATELET VOLUME 11.1 fl (9.6-12.3); PLATELET COUNT AUTOMATED 146 10*3/uL (130-400); RED BLOOD COUNT 4.28 10*6/uL (4.10-5.10); RED CELL DISTRI WIDTH 13.7 % (0-14.5); WHITE BLOOD COUNT 7.2 10*3/uL (4.8-10.8)
[2022-02-04 06:51] LABS: MANUAL DIFF REFLEX YES
[2022-02-04 07:09] LABS: CREATININE 1.4 mg/dL (0.55-1.02); POTASSIUM 4.8 mmol/L (3.5-5.1)
[2022-02-04 07:41] LABS: ATYPICAL LYMPHS 1 % (0-0); OVALOCYTES FEW; PLATELET SUFFICIENCY NORMAL (NORMAL); POLYCHROMASIA SLIGHT; TOTAL CELLS COUNTED 100 #CELLS
[2022-02-04 07:42] LABS: BURR CELLS FEW
[2022-02-04 08:00] VITALS: BP 133/78; BP 136/69
[2022-02-04 12:00] VITALS: BP 124/50
[2022-02-04 16:00] VITALS: BP 129/51
[2022-02-04 20:00] VITALS: BP 117/47
[2022-02-05] VITALS: BP 121/41
[2022-02-05 08:00] VITALS: BP 130/50
[2022-02-05] MEDS ORDERED: HYDROCODONE-AC1 EACH PO (09:36)
[2022-02-05] MEDS ORDERED: LOPRESSOR25 MG PO (09:36)
[2022-02-05] MEDS ORDERED: ATIVAN0.5 MG PO (09:36)
[2022-02-05] MEDS ORDERED: NEURONTIN300 MG PO (09:36)
[2022-02-05] MEDS ORDERED: AMLODIPINE BESY10 MG PO (09:36)
[2022-02-05] MEDS ORDERED: METHOCARBAMOL500 M1 PO (09:36)
[2022-02-05] MEDS ORDERED: ACETAMINOPHEN325 M2 PO (09:36)
== END 2022-02-05 12:09 | DRG 177 ==
LOC: ED 14:18 → 4E 17:12 → EDHOLD 17:12 → 4E 19:48
PROVIDERS: Emergency Medicine; Internal Medicine; Registered Nurse; ADMIT Internal Medicine; ATTEND Internal Medicine
DX: U07.1 COVID-19 (principal); N17.0 Acute kidney failure with tubular necrosis; F33.9 Major depressive disorder, recurrent, unspecified; J96.11 Chronic respiratory failure with hypoxia; R54 Age-related physical debility; I25.10 Atherosclerotic heart disease of native coronary artery without angina pectoris; E78.5 Hyperlipidemia, unspecified; E11.22 Type 2 diabetes mellitus with diabetic chronic kidney disease; E66.01 Morbid (severe) obesity due to excess calories; E87.8 Other disorders of electrolyte and fluid balance, not elsewhere classified; E11.65 Type 2 diabetes mellitus with hyperglycemia; M80.00XD Age-related osteoporosis with current pathological fracture, unspecified site, subsequent encounter for fracture with routine healing; N18.31 Chronic kidney disease, stage 3a; F41.9 Anxiety disorder, unspecified; I12.9 Hypertensive chronic kidney disease with stage 1 through stage 4 chronic kidney disease, or unspecified chronic kidney disease; K57.90 Diverticulosis of intestine, part unspecified, without perforation or abscess without bleeding; Z78.9 Other specified health status; I25.2 Old myocardial infarction; Z95.1 Presence of aortocoronary bypass graft; Z95.5 Presence of coronary angioplasty implant and graft; S32.000D Wedge compression fracture of unspecified lumbar vertebra, subsequent encounter for fracture with routine healing; Z90.710 Acquired absence of both cervix and uterus; Z98.51 Tubal ligation status; Z82.49 Family history of ischemic heart disease and other diseases of the circulatory system; Z83.3 Family history of diabetes mellitus; Z82.3 Family history of stroke; Z68.31 Body mass index [BMI] 31.0-31.9, adult